=== PATIENT | female | born 1990 | race Asian ===

== ENCOUNTER 2020-05-05 14:50 | Emergency (ER) | payer OTHER ==
[~2020-05-05] VITALS: Ht 157.5 cm; Wt 55.4 kg
[2020-05-05] MEDS ORDERED: MULTTAB20 PO (15:03)
[2020-05-05 15:57] LABS: BASO % 0.1 % (0.0-1.0); EOS # 0.1 10^3/uL (0.0-0.5); EOS % 0.8 % (0.0-3.0); HEMATOCRIT 34.8 % (36.0-47.0); HEMOGLOBIN 11.1 g/dl (12.0-15.5); LYMPH # 1.7 10^3/uL (1.5-5.0); LYMPH % 23.3 % (24.0-44.0); MEAN CORPUSCULAR HEMOGLOBIN 25.8 pg (27.0-33.0); MEAN CORPUSCULAR HGB CONC 31.9 g/dl (32.0-36.5); MEAN CORPUSCULAR VOLUME 80.9 fl (80.0-96.0); MONO # 0.5 10^3/uL (0.0-0.8); MONO % 6.8 % (0.0-5.0); NEUTROPHILS % 68.5 % (36.0-66.0); PLATELET COUNT, AUTOMATED 259 10^3/uL (150-450); WHITE BLOOD COUNT 7.3 10^3/uL (4.0-10.0)
[2020-05-05] MEDS ORDERED: METOCLOPRAMIDE INJ 10MG/2ML VIAL (J2765 PER 1) IV ONE (16:30)
[2020-05-05] MEDS ORDERED: OMEPRAZOLE 20 MG CAP PO ONE (16:30)
[2020-05-05] MEDS ORDERED: NS 1,000 ML IV ONE (16:30)
[2020-05-05 16:45] LABS: ALBUMIN 3.3 GM/DL (3.2-5.2); BILIRUBIN,DIRECT 0.1 MG/DL (0.0-0.2); BILIRUBIN,TOTAL 0.5 MG/DL (0.2-1.0); TOTAL PROTEIN 6.6 GM/DL (6.4-8.2)
--- NOTE | 2020-05-05 17:18 | REP ---
INDICATION: RUQ abd pain, preg. COMPARISON: None. TECHNIQUE: Standard right upper quadrant ultrasound. Technologist notes indicate the patient has fast was 4 hours for this scan. FINDINGS: Liver is homogeneous in echotexture, not enlarged. There is no hepatic mass, biliary dilatation or adjacent ascites. Gallbladder has sludge and a somewhat thickened wall with partial contraction, the wall is about 3.4 mm. I do not see echogenic calculi with shadowing. No pericholecystic fluid. No sonographic Dent sign. Common duct has a diameter 3.9 mm without a filling defect. Only limited visualization of the pancreas due to gas shadowing. The right kidney is 10.9 x 5.5 x 3.2 cm without hydronephrosis, stone or mass evident. There is no free fluid in the upper abdomen. IMPRESSION: 1. Biliary sludge in a partially contracted gallbladder with thickened wall. The wall thickness may be due to the fact that the patient had eaten 4 hours before the exam when the recommended fast is 6 hours. There is no definite calcified stone or shadowing, pericholecystic fluid or mass. Wall thickness was 3.4 mm. Common duct 3.9 mm and normal. 2. The liver is without mass, a biliary dilatation nor adjacent ascites. Has normal echotexture. 3. Right kidney unremarkable. Pancreas very limited in evaluation due to gas shadowing. <Electronically signed by Devan Morrison > 05/05/20 [id number]
[2020-05-05] MEDS ORDERED: OMEP-218 PO (18:06)
[2020-05-05] MEDS ORDERED: REGL10TA6 PO (18:06)
[2020-05-05 18:31] VITALS: BP 113/58
--- NOTE | 2020-05-07 11:39 | ED PDOC ---
Post-Departure Follow-Up gb us faxed to [facility] for fu Fahad Marx MD May 07, 2020 11:39
== END 2020-05-05 18:32 | disposition home or self-care (01) ==
LOC: M ED 14:50
DX: O26.891 Other specified pregnancy related conditions, first trimester (principal); R10.13 Epigastric pain; O99.611 Diseases of the digestive system complicating pregnancy, first trimester; K21.9 Gastro-esophageal reflux disease without esophagitis; O26.611 Liver and biliary tract disorders in pregnancy, first trimester; K83.8 Other specified diseases of biliary tract; Z3A.12 12 weeks gestation of pregnancy
CPT/HCPCS: 76705; 80047; 80076; 81001; 83690; 84702; 85025; 96374; 99284; J2765

== ENCOUNTER → 2020-09-14 | Outpatient (CLI) | payer OTHER ==
[~2020-09-14] MED LIST: MULTTAB20 PO; OMEP-218 PO; REGL10TA6 PO
--- NOTE | 2020-09-14 09:31 | REP ---
INDICATION: ANATOMY COMPARISON: None. TECHNIQUE: Transabdominal obstetrical ultrasound with color Doppler evaluation. FINDINGS: Examination demonstrates a single live intrauterine in cephalic presentation. motion is identified by technologist. Placenta is noted posterior and grade 2 without evidence for placenta previa or abruption. Amniotic fluid volume is normal. Cervix measures 3.5 cm in length and appears closed.. Gestational age by LMP 32 weeks 4 days with PAULA 11/05/2020. Gestational age by current measurements 31 weeks 6 days with PAULA 11/10/2020. FHR equals 140 beats per minute. Estimated weight 1749 grams (12thpercentile). IRIS: 10.4 cm (8.4-24.4) Umbilical artery SD ratio: 2.78 (1.81-3.81) Anatomical assessment demonstrates normal structures including cranium, choroid plexus, facial features, lungs, four-chamber heart/ventricular outflow tracts, diaphragm, stomach, cord insertion/three-vessel cord, kidneys/bladder, spine, and extremities. IMPRESSION: Single live advanced gestation in cephalic presentation. Limited evaluation of the cerebellum/posterior fossa. Remainder of the anatomical assessment is normal. <Electronically signed by Mendez Ortiz > 09/14/20 [id number]
== END ==
LOC: M WHC 07:01
PROVIDERS: ATTEND Obstetrics & Gynecology
DX: O98.513 Other viral diseases complicating pregnancy, third trimester (principal); Z3A.31 31 weeks gestation of pregnancy

== ENCOUNTER → 2020-09-19 | Outpatient (REF) | payer OTHER ==
[2020-09-19 12:01] LABS: HEMATOCRIT 34.4 % (36.0-47.0); MEAN CORPUSCULAR HEMOGLOBIN 27.8 pg (27.0-33.0); MEAN CORPUSCULAR VOLUME 87.1 fl (80.0-96.0); PLATELET COUNT, AUTOMATED 199 10^3/uL (150-450); RED BLOOD COUNT 3.95 10^6/uL (4.00-5.40); WHITE BLOOD COUNT 8.3 10^3/uL (4.0-10.0)
== END ==
LOC: M PLALAB 09:03
PROVIDERS: ATTEND Obstetrics & Gynecology
DX: O98.513 Other viral diseases complicating pregnancy, third trimester (principal)

== ENCOUNTER → 2020-10-01 | Outpatient (CLI) | payer OTHER | LOC: M LAB 08:30 | PROVIDERS: ATTEND Obstetrics & Gynecology | DX: R73.09 Other abnormal glucose (principal) ==

== ENCOUNTER → 2020-10-03 | Outpatient (CLI) | payer SELFPAY | LOC: M LABSMTC 11:42 | PROVIDERS: ATTEND Pediatrics | DX: Z11.52 Encounter for screening for COVID-19 (principal) ==

== ENCOUNTER → 2020-10-09 | Outpatient (CLI) | payer OTHER ==
--- NOTE | 2020-10-09 09:36 | REP ---
INDICATION: F/U ANATOMY COMPARISON: 09/14/2020 TECHNIQUE: Transabdominal obstetrical ultrasound with color Doppler evaluation. FINDINGS: Examination demonstrates a single live intrauterine in cephalic presentation. motion is identified by technologist. Placenta is noted posterior and grade 2 without evidence for placenta previa or abruption. Amniotic fluid volume is normal. Cervix appears closed.. Gestational age by LMP 36 weeks 1 day with PAULA 11/05/2020. Gestational age by current measurements 34 weeks 4 days with PAULA 11/16/2020. FHR equals 147 beats per minute. IRIS: 11.9 cm Estimated weight 2485 grams (17thpercentile). Anatomical assessment demonstrates normal structures including cerebellum and cisterna magna. IMPRESSION: Single live advanced gestation in cephalic presentation. Cerebellum/posterior fossa and cisterna magna appear normal. <Electronically signed by Mendez Ortiz > 10/09/20 0926
== END ==
LOC: M WHC 08:25
PROVIDERS: ATTEND Advanced Practice Midwife
DX: Z36.89 Encounter for other specified antenatal screening (principal); Z3A.33 33 weeks gestation of pregnancy

== ENCOUNTER → 2020-10-09 | Outpatient (REF) | payer OTHER | LOC: M SFHCWAGY 13:28 | PROVIDERS: ATTEND Advanced Practice Midwife | DX: Z36.89 Encounter for other specified antenatal screening (principal); Z3A.36 36 weeks gestation of pregnancy ==

== ENCOUNTER 2020-11-05 07:52 | Inpatient (IN) | payer OTHER ==
[~2020-11-05] VITALS: Ht 157.5 cm; Wt 65.5 kg
[2020-11-05] VITALS (11 sets, daily range): BP systolic 101–122; BP diastolic 50–71
[2020-11-05] MEDS ORDERED: LACTATED RINGER'S 1000 ML IV STA (08:21)
[2020-11-05] MEDS ORDERED: OXYTOCIN DRIP 30 UNITS in IV 1 EA IV PRN (08:25)
[2020-11-05] MEDS ORDERED: CARBOPROST TROMETHAMINE 250 MCG/ML AMP IM PRN (08:25)
[2020-11-05] MEDS ORDERED: METHYLERGONOVINE MALEATE 0.2 MG/ML VIAL (J2210) IM PRN (08:25)
[2020-11-05] MEDS ORDERED: TRANEXAMIC ACID INJection 1,000 MG in NS 100 ML IV PRN (08:25)
[2020-11-05] MEDS ORDERED: ACET325C5 PO (08:25)
[2020-11-05] MEDS ORDERED: LIDOCAINE 1% MDV 20ML VIAL INFIL PRN (08:25)
[2020-11-05] MEDS ORDERED: VALT1TAB PO (08:25)
[2020-11-05 09:20] LABS: HEMOGLOBIN 12.2 g/dl (12.0-15.5); MEAN CORPUSCULAR HEMOGLOBIN 28.7 pg (27.0-33.0); MEAN CORPUSCULAR VOLUME 87.1 fl (80.0-96.0); PLATELET COUNT, AUTOMATED 199 10^3/uL (150-450); RED BLOOD COUNT 4.25 10^6/uL (4.00-5.40); WHITE BLOOD COUNT 8.8 10^3/uL (4.0-10.0)
[2020-11-05] MEDS: miSOPROStol 50MCG 1/2 TABLET PO SCH ×4 (09:40→22:20)
--- NOTE | 2020-11-05 09:43 | HPEPDOC ---
Obstetrical History & Physical General Date of Admission November 05, 2020 at 07:52 Primary Care Physician: CINDY CLANCY CNM History of Present Illness Kathleen is a 30-year-old female who is a at 40 weeks gestation with an PAULA of 11/05/20 based off of her LMP and consistent with her first trimester ultras ound. She initiated care in her first trimester with [facility] and transferred care to [facility]. her has been complicated by A1GDM and a history of HSV. She reports she has been taking her Valtrex and denies any herpes symptoms. She presents for an induction of labor related to A1GDM. She reports active movement. She denies leaking of fluid, contractions or vaginal bleeding. Chief Complaint: Induction of labor, Other (A1GDM) Information Provided By: Patient Age: 30 : 1 Term: 0 Pre-term: 0 Abortions: 0 Livin Care Care: Good Care Dating Final EDC: November 05, 2020 Final EDC by: LMP EGA at Admission: 40 Antepartum Course Diagnos(e)s A1GDM Height (inches): 62 Admission Weight (lbs.): 144 Past Medical History Past Obstetrical History : Past Obstetrical History: Primgravida [employer] History: Human papillomavirus(HPV), Herpes simplex virus(HSV) Past Medical History Medical History HSV-no outbreak in over a year. Surgical History: Other (eye surgery) Family History Significant Family History: Cancer (throat, stomach, prostate) Social History Marital Status: Family situation: Spouse/partner home Psychosocial History: No pertinent psych hx * Smoker: non-smoker Alcohol: Denies Drugs: denies Abuse Violence Screening Have you been hit/kicked/slapp: No Have you been sexually assault: No Allergies Coded Allergies: No Known Allergies (Unverified , 05/05/20) Medications Scheduled No122/Iron/Folic Acid ( Multi Tablet) 1 Each Tablet, 1 TAB PO DAILY Valacyclovir HCl (Valtrex) 1,000 Mg Tablet, 1 TAB PO BID Miscellaneous Medications Acetaminophen (Tylenol) 325 Mg Capsule, 325 MG PO Physical Examination Physical Examination GENERAL: Alert and oriented times three. BREAST: . ABDOMEN: Gravid and non-tender to touch. FETUS: Is vertex (VTX) by sterile vaginal examination (SVE), fetus is vertex (VTX) by Marquis. LUNGS: Clear to auscultation (CTA). PERINEUM: no external lesions noted. EXTREMITIES: No edema. No clonus. Deep tendon reflexes (DTRs) + 2. Vital Signs/I&O Vital Signs Label Value Date Time Patient Temperature 97.7 degrees F 11/05/20 0837 Temperature Source Temporal 11/05/20 0837 Pulse 68 11/05/20 0837 Respiratory Rate 18 bpm 11/05/20 0837 Blood Pressure Assessment 108/68 (81) 11/05/20 0837 Source Automatic Cuff (NIBP) Laboratory Data 24H LABS Laboratory Tests 2 11/05/20 08:05: Serology Scanned Report Hepatitis B Testing 11/05/20 08:58: Nucleated Red Blood Cells % (auto) 0.0 11/05/20 09:29: Bedside Glucose (Misc Panel) 70 CBC/BMP Laboratory Tests 11/05/20 08:58 Urine Culture: No Growth Pertinent Laboratoy Data Blood Type: O+ RBC Antibody Screen: Negative HIV: Negative Hepatitis B: Negative Hepatitis C: Negative Rapid Plasma Reagin: Nonreactive Rubella: Immune Chlamydia/Gonorrhea: Negative Group B Streptococcus: Negative Glucose Tolerance Test: 152 Vaginal Examination Dilation: None Cervical Consistency: Soft Cervical Position: Posterior Presentation: Cephalic presentation Position: Vertex (occiput) Assessment Heart Rate (FHR): 140 Variability: Moderate Accelerations: Positive Decelerations: None Tocometer Contractions: Yes Frequency: irregular Multi-drug resistant Organism: No history of MDRO Assessment/Plan Assessment IUP at 40 weeks gestation A1GDM elective induction of labor Category I FHR tracing Plan Admit to L&D. OOB ad alysia Diet: regular now then start with clear liquid diet when IV Pitocin started. . Group B Streptococcus (GBS) negative. Labs and intravenous (IV) per unit protocol. Counseled on Cytotec, rousseau bulb and IV Pitocin for induction of labor (IOL). Start Cytotec per order. Anesthesia consult per patient's request. Lactated Ringers (LR): Bolus 800 mL prior to epidural, then at 125 mL/hr. Anticipate cervical ripening. C-S as appropriate. CINDY CLANCY CNM November 05, 2020 09:43
[2020-11-06] VITALS (55 sets, daily range): BP systolic 85–174; BP diastolic 51–79
[2020-11-06] MEDS ORDERED: PROMETHAZINE INJ 25 MG/ML VIAL (J2550) IV ONE (04:00)
[2020-11-06] MEDS ORDERED: BUTORPHANOL 2 MG/ML INJ (J0595) IV ONE (04:00)
--- NOTE | 2020-11-06 04:00 | IPNPDOC ---
Obstetrical Progress Note Date of Service November 06, 2020 Subjective Patient reports cramping with contractions and some that she has to breath through. Objective Vital Signs Date Time Temp Pulse Resp B/P (MAP) Pulse Ox O2 Delivery O2 Flow Rate FiO2 11/05/20 23:36 56 18 110/59 (76) 11/05/20 22:19 98.9 Assessment Heart Rate (FHR): 125 Variability: Moderate Accelerations: Positive Decelerations: None Heart Rate Tracing: Category I Tocometer Contractions: Yes Frequency: irregular (2-7 minutes) Strength: palpated as moderate Sterile Vaginal Examination Dilation: 1cm Effacement (%): 90% Station: -1 Cervical Position: Posterior Postion/Presentation: Cephalic presentation Assessment and Plan Age: 30 : 1 Term: 0 Pre-term: 0 Abortions: 0 Livin EGA at Admission: 40.1 Status: Reassuring Group B Streptococcus: Negative Anticipate: Vaginal Delivery Additional Comments Continue with 1 more dose of Cytotec and then we will transition to IV Pitocin. Patient may have IV pain medication if she desires at this time. CINDY CLANCY CNM November 06, 2020 04:00
[2020-11-06] MEDS: miSOPROStol 50MCG 1/2 TABLET PO SCH (04:26)
[2020-11-06] MEDS ORDERED: LR 1,000 ML IV SCH (09:55)
[2020-11-06] MEDS ORDERED: OXYTOCIN DRIP 30 UNITS in IV 1 EA IV SCH (09:55)
[2020-11-06] MEDS ORDERED: FENTANYL 2MCG/ML ROPIVACAINE 0.2% IN 0.9% NACL 100ML IVBAG As Ordered ONE (10:55)
--- NOTE | 2020-11-06 11:37 | IPNPDOC ---
Obstetrical Progress Note Date of Service November 06, 2020 Subjective comfortable with epidural Objective Vital Signs Date Time Temp Pulse Resp B/P (MAP) Pulse Ox O2 Delivery O2 Flow Rate FiO2 11/06/20 10:41 60 20 148/76 (100) 11/06/20 09:31 98.1 11/06/20 04:27 Room Air Assessment Variability: Moderate Accelerations: Positive Decelerations: None Heart Rate Tracing: Category I Tocometer Contractions: Yes Frequency: regular, every 1-3 min. Duration: greater than 60 seconds Strength: palpated as moderate Sterile Vaginal Examination Dilation: 3 cm Effacement (%): 100% Station: -2 Cervical Consistency: Soft Cervical Position: Posterior Postion/Presentation: Cephalic presentation Assessment and Plan Age: 30 : 1 Term: 0 Pre-term: 0 Abortions: 0 Livin EGA at Admission: 40 Status: Reassuring Additional Comments 30 yo G1 at 40 weeks, A1GDM, day#2 labor induction Pt received 5 doses Misoprostol Pt now in Pitocin at 4 mu/minute Check blood sugar now by fingerstick Plan AROM later today if needed TANNER PASCAL MD November 06, 2020 11:37
[2020-11-06] MEDS ORDERED: ePHEDrine SULFATE 25 MG/5 ML(5MG/ML) SYRINGE As Ordered ONE (12:42)
[2020-11-06] MEDS: ePHEDrine SULFATE 25 MG/5 ML(5MG/ML) SYRINGE IV PRN ×3 (12:44→13:57)
[2020-11-06] MEDS ORDERED: ONDANSETRON 4MG/2ML VIAL IV PRN ×2 (13:05→19:55)
[2020-11-06] MEDS ORDERED: EPIDURAL/PCA KEYS XX PRN (13:05)
[2020-11-06] MEDS ORDERED: diphenhydrAMINE 50MG/ML VIAL (J1200) IV PRN (13:05)
[2020-11-06] MEDS ORDERED: NALOXONE INJ 0.4MG/1ML VIAL (J2310 PER 1MG) IV PRN (13:05)
[2020-11-06] MEDS ORDERED: FENTANYL/ROPIVACAINE/NACL BAG 100 ML EPIDURAL SCH (13:05)
[2020-11-06] MEDS ORDERED: EPIDURAL COMMENT XX SCH (13:05)
[2020-11-06] MEDS ORDERED: REFRIGERATOR IV KEYS XX PRN (13:05)
[2020-11-06 19:26] LABS: CORD GAS ABE A -13.5; CORD GAS ABE V -10.1; CORD GAS HCO3 A 18.2 MEQ/L; CORD GAS HCO3 V 16.6 MEQ/L; CORD GAS O2 SAT A < 15.0 %; CORD GAS O2 SAT V 40.6 %; CORD GAS PCO2 A 68.6 mmHg; CORD GAS PCO2 V 39.2 mmHg; CORD GAS PH A 7.042 UNITS; CORD GAS PH V 7.244 UNITS; CORD GAS PO2 A < 10.0 mmHg; CORD GAS PO2 V 21.3 mmHg; CORD GAS SBC V 15.4 MEQ/L; CORD GAS TCO2 A 20.3 MEQ/L; CORD GAS TCO2 V 17.8 MEQ/L
[2020-11-06] MEDS ORDERED: METHYLERGONOVINE MALEATE 0.2 MG TAB PO PRN (19:55)
[2020-11-06] MEDS ORDERED: LIDOCAINE 1% MDV 20ML VIAL INFIL ONE (19:55)
[2020-11-06] MEDS ORDERED: IBUPROFEN 600MG TAB PO PRN (19:55)
[2020-11-06] MEDS ORDERED: OXYTOCIN DRIP 30 UNITS in IV 1 EA IV ONE (19:55)
[2020-11-06] MEDS ORDERED: DOCUSATE SODIUM 100MG CAPSULE PO PRN (19:55)
[2020-11-06] MEDS ORDERED: ACETAMINOPHEN TAB 650MG DOSE (2X325MG) PO PRN (19:55)
[2020-11-06] MEDS ORDERED: DIBUCAINE 1% OINTMENT 30GM TOP PRN (19:55)
[2020-11-06] MEDS ORDERED: RHOGAM 300 MCG (1500 IU) INJ (J2790) IM SCH (19:55)
[2020-11-06] MEDS ORDERED: MEASLES,MUMPS,RUBELLA VACCINE INJ (MMR-II) (90707) SC SCH (19:55)
[2020-11-06] MEDS ORDERED: AMPICILLIN SOD/SULBACTAM SOD 3 GM in D5W MINI-BAG PLUS 100 ML IV ONE (20:00)
--- NOTE | 2020-11-06 20:15 | DNPDOC ---
[facility] Delivery Note Delivery Note DATE OF DELIVERY: November 06, 2020 PREDELIVERY DIAGNOSIS: 40-5/7 weeks' gestation, labor induction. POST DELIVERY DIAGNOSIS: Delivered. PROCEDURE: Low forceps assisted vaginal delivery. SHIP JOINER: Dr. Tanner Pascal MD ANESTHESIA: epidural. ESTIMATED BLOOD LOSS: 300 mL. FINDINGS: 6 pound 7 ounce female infant, Score 9/9, nuchal cord times 1. Venous cord blood gas: 7.24 BE=-10 Arterial cord blood gas: 7.042 BE=-13.5 DELIVERY SUMMARY: Patient is a 30-year-old 1 now para 1 who was admitted to labor and delivery for labor induction. She received 5 doses of oral Misoprostol. She then had IV Pitocin followed by AROM. After a 2 hour second stage of labor she developed tachycardia with variable decelerations. She was diagnosed with arrest of descent. In addition, she developed intrapartum fevers and was diagnosed clinically with chorioamnionitis. The decision was made to assist delivery. [id number] Forceps applied to the direct OA vertex at +2 station. Delivery accomplished with a single controlled traction along with maternal effort. Nuchal cord x 1 reduced. Shoulders delivered with ease. Placenta delivered spontaneously and appeared intact. Pt received IV Pitocin immediately after delivery of the placenta. A second degree perineal laceration was repaired with 2-O Chromic in the usual fashion. Sponge and needle counts correct. A single dose of Unasyn given after delivery for cho rioamnionitis. TANNER PASCAL MD November 06, 2020 20:15
[2020-11-06] MEDS: ACETAMINOPHEN 500 MG TAB PO PRN (20:22)
[2020-11-06] MEDS: IBUPROFEN 800 MG TAB PO PRN (23:20)
[2020-11-07 06:00] VITALS: BP 101/68
[2020-11-07] MEDS: PRENATAL VITAMINS CHEWABLE TABLET PO SCH (09:16)
[2020-11-07] MEDS: ACETAMINOPHEN 500 MG TAB PO PRN ×2 (09:21→18:50)
[2020-11-07 18:00] VITALS: BP 97/64
[2020-11-07] MEDS: IBUPROFEN 800 MG TAB PO PRN (20:00)
[2020-11-08 06:00] VITALS: BP 100/50
[2020-11-08] MEDS: IBUPROFEN 800 MG TAB PO PRN ×2 (06:26→15:22)
[2020-11-08] MEDS: PRENATAL VITAMINS CHEWABLE TABLET PO SCH (09:42)
[2020-11-08 18:32] VITALS: BP 105/76
[2020-11-08] MEDS ORDERED: MOM 30ML SUSPENSION UDC PO PRN (19:40)
[2020-11-08] MEDS: ACETAMINOPHEN 500 MG TAB PO PRN (21:58)
[2020-11-09 06:00] VITALS: BP 103/66
[2020-11-09] MEDS: PRENATAL VITAMINS CHEWABLE TABLET PO SCH (07:44)
[2020-11-09] MEDS: IBUPROFEN 800 MG TAB PO PRN (09:08)
== END 2020-11-09 12:50 | disposition home or self-care (01) | DRG 805 ==
LOC: M LDI 07:52 → M OBS 11-06 21:40
PROVIDERS: ADMIT Advanced Practice Midwife; ATTEND Advanced Practice Midwife
PROC: 3E0P7GC Introduction of Other Therapeutic Substance into Female Reproductive, Via Natural or Artificial Opening (ICD-10-PCS; 2020-11-05)
PROC: 10D07Z3 Extraction of Products of Conception, Low Forceps, Via Natural or Artificial Opening (ICD-10-PCS; principal; 2020-11-06)
PROC: 0KQM0ZZ Repair Perineum Muscle, Open Approach (ICD-10-PCS; 2020-11-06)
PROC: 10907ZC Drainage of Amniotic Fluid, Therapeutic from Products of Conception, Via Natural or Artificial Opening (ICD-10-PCS; 2020-11-06)
DX: O24.420 Gestational diabetes mellitus in childbirth, diet controlled (principal); Z37.0 Single live birth; O41.1230 Chorioamnionitis, third trimester, not applicable or unspecified; Z3A.40 40 weeks gestation of pregnancy; O48.0 Post-term pregnancy; O76 Abnormality in fetal heart rate and rhythm complicating labor and delivery; O69.81X0 Labor and delivery complicated by cord around neck, without compression, not applicable or unspecified; O32.4XX0 Maternal care for high head at term, not applicable or unspecified; O70.1 Second degree perineal laceration during delivery